=== PATIENT | female | born 1965 ===

== ENCOUNTER 2018-12-11 19:51 | Emergency (ER) | payer OTHER, MEDICAID ==
[2018-12-11 21:02] VITALS: BP 129/89; PULSE 62; RESP 17; TEMP 98.1; O2SAT 98
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
== END 2018-12-11 23:35 | disposition left against medical advice (07) ==
LOC: H.ER 19:51
DX: S00.83XA Contusion of other part of head, initial encounter (principal); S39.92XA Unspecified injury of lower back, initial encounter; S19.9XXA Unspecified injury of neck, initial encounter; V43.62XA Car passenger injured in collision with other type car in traffic accident, initial encounter; Y92.410 Unspecified street and highway as the place of occurrence of the external cause